=== PATIENT | female | born 1965 | race Caucasian/White ===

== ENCOUNTER → 2018-04-22 16:48 | Outpatient (CLI) | payer MEDICARE | END | disposition home or self-care (01) | LOC: D.MAMMO 03-11 15:45 | DX: Z12.31 Encounter for screening mammogram for malignant neoplasm of breast (principal) ==

== ENCOUNTER → 2018-06-22 09:26 | Outpatient (CLI) | payer MEDICARE ==
--- NOTE | ~2018-06-22 | ST ---
PATIENT:KENAN MANZO MEDICAL RECORD: [id number] SEX: F LOCATION:[facility] ORDER #: ADMISSION DATE: 06/22/18 AGE OF PATIENT: 53 REFERRING PHYSICIAN: INTERPRETING PHYSICIAN: EDDIE PEDRAZA MD DATE OF SERVICE: 06/22/2018 NUCLEAR STRESS TEST INDICATION: Chest pain, shortness of breath. PROCEDURE: The patient was exercised on standard Lexiscan protocol with 33 mCi injected at peak stress, 10 mCi were used previously for rest images. FINDINGS: Gated SPECT reveals preserved ejection fraction at 81% with good wall motion and thickening and brightening throughout all segments. SPECT imaging Cardiolite was used as myocardial fusion agent. There is homogeneous uptake throughout all segments at rest and stress with no evidence of inducible ischemia or previous infarction. OVERALL IMPRESSION: 1. This is a normal nuclear stress test with no evidence of inducible ischemia or previous infarction. 2. Gated SPECT reveals a preserved ejection fraction at 81%. In this patient with ongoing symptomatology, the current scan does not suggest the presence of hemodynamically significant coronary artery disease. Evaluate noncardiac etiology of chest pain. TRANSINT:[id number] Voice Confirmation ID: [id number] DOCUMENT ID: [id number] CC: HATTIE Villasenor JEFFREY MD at 1025 CC: [id number] DICTATION DATE: 06/22/18 1702 [place] ACCOUNTANT: 06/23/18 0738 [facility] CLI 06/22/18 [id number] [place] [address]
== END | disposition home or self-care (01) ==
LOC: D.HCCARDIO 09:26
DX: R07.9 Chest pain, unspecified (principal)

== ENCOUNTER 2019-04-27 08:00 | Outpatient (CLI) | payer MEDICARE | END 2019-04-27 12:00 | disposition home or self-care (01) | LOC: D.MAMMO 08:00 | PROVIDERS: ATTEND Family Medicine | DX: Z12.31 Encounter for screening mammogram for malignant neoplasm of breast (principal) ==

== ENCOUNTER 2020-05-08 11:00 | Outpatient (CLI) | payer MEDICARE | END 2020-05-08 16:00 | disposition home or self-care (01) | LOC: D.MAMMO 11:00 | PROVIDERS: ATTEND Family Medicine | DX: Z12.31 Encounter for screening mammogram for malignant neoplasm of breast (principal) ==